=== PATIENT | female | born 1980 | race Two or more races ===

== ENCOUNTER 2016-09-16 03:19 | Emergency (ER) | payer BC ==
[~2016-09-16 03:19] MED LIST: ACET500CAP PO
[2016-09-16] MEDS ORDERED: NEUR300 PO (13:32)
[2016-09-16] MEDS ORDERED: MSCONT15 PO (13:34)
[2016-09-16] MEDS ORDERED: BACDS (13:34)
[2016-09-16] MEDS ORDERED: XELODA PO (13:35)
== END 2016-09-16 03:22 | disposition home or self-care (01) ==
LOC: ER 03:19
DX: G89.3 Neoplasm related pain (acute) (chronic) (principal); C50.912 Malignant neoplasm of unspecified site of left female breast; C79.51 Secondary malignant neoplasm of bone; M25.551 Pain in right hip; M54.5 Low back pain; K21.9 Gastro-esophageal reflux disease without esophagitis; Z85.3 Personal history of malignant neoplasm of breast; Z91.013 Allergy to seafood; Z79.899 Other long term (current) drug therapy
CPT/HCPCS: 96372; 99283; J1170; J2550

== ENCOUNTER 2016-09-16 10:42 | Inpatient (IN) | payer BC ==
--- NOTE | ~2016-09-16 | CONSULT ---
Radiation Oncology Consult [address] [address] NAME: GERARDO WERNER : 84 STATUS : ADM IN PAT#: [id number] AGE: 36 ADM/REG DATE : 09/16/16 MR#: [id number] REPORT SERV DATE: 09/19/16 DICTATED BY: GIAN TRINIDAD DATE: 09/19/16 REPORT STATUS : Draft TRANSCRIBED BY: MODL DATE: 09/19/16 RADIATION ONCOLOGY CONSULTATION CHIEF COMPLAINT: Lumbosacral metastasis. HISTORY OF PRESENT ILLNESS: Ms Werner is a pleasant 36-year-old female with metastatic triple negative breast cancer with recent evidence of progression of disease. She was originally diagnosed with metastatic disease in December of 2014, and has received carboplatin and Gemzar, and stereotactic radiosurgery to the brain followed by palliative radiation to the cervical spine. She has most recently developed severe pain in her lumbosacral region, and MRI confirms lesion in this region. She has been hospitalized for control of her pain, and had already been set up for CT treatment planning. I have been consulted to facilitate starting her treatment soon as possible. PAST MEDICAL HISTORY: Breast cancer and atrial fibrillation SOCIAL HISTORY: The patient is . Does not smoke or drink alcohol. FAMILY HISTORY: No family history of malignancy. ALLERGIES: SEAFOOD. MEDICATIONS: Medication list reviewed with the patient included in the patient's chart. REVIEW OF SYSTEMS: A comprehensive review of systems was discussed in detail with Ms Werner. Pertinent positives and negatives are included above in the history of present illness. PHYSICAL EXAMINATION: GENERAL: The patient is awake, alert and oriented, in no acute distress. Although, she appears to be in significant pain. VITAL SIGNS: Afebrile. Vital signs are stable. HEENT: Extraocular movements are intact. Sclerae anicteric. Oral cavity is benign without erythema. NECK: Supple. No thyromegaly. LYMPHATICS: No cervical, supraclavicular, or axillary lymphadenopathy palpated. LUNGS: Clear to auscultation bilaterally. Appropriate work of breathing. HEART: Regular rate. Normal sinus rhythm. No murmurs, rubs, or gallops. ABDOMEN: Soft, nontender, and nondistended. No hepatosplenomegaly. No apparent hernias. EXTREMITIES: No cyanosis, clubbing, or edema. SKIN: No rashes. No obvious jaundice. LABORATORY DATA: Labs and other data; imaging revealing a new site of metastasis at the lumbosacral junction causing severe pain. Radiation Oncology Consult [address] [place] [facility] [place] [address] NAME: GERARDO WERNER : 84 STATUS : ADM IN PAT#: [id number] AGE: 36 ADM/REG DATE : 09/16/16 MR#: [id number] REPORT SERV DATE: 09/19/16 DICTATED BY: GIAN TRINIDAD DATE: 09/19/16 REPORT STATUS : Draft TRANSCRIBED BY: SHILO DATE: 09/19/16 ASSESSMENT/PLAN: 36-year-old female with metastatic breast cancer and severe pain due to new metastatic disease. I will plan to treat this area with [address] simulation will be performed today, and I will give her first treatment on Monday. She should complete treatment by end of the next week. INFORMED CONSENT: The risks, benefits, and alternatives of this treatment have been discussed in detail with Ms Werner and she wishes to proceed. I appreciate the opportunity to be involved in her care. VICKEY/SHILO Gian Trinidad M.D. / [id number] CC: MD Iván Nelson MD Peter Boehm, M.D.
--- NOTE | ~2016-09-16 | DS ---
Discharge Summary [place] [id number] [facility] [place]. [address] NAME: GERARDO WERNER : 84 STATUS : DIS IN PAT#: [id number] AGE: 36 ADM/REG DATE : 09/16/16 MR#: [id number] REPORT SERV DATE: 09/19/16 DICTATED BY: HOMERO HERNANDEZ DATE: 09/19/16 REPORT STATUS : Draft TRANSCRIBED BY: MODL DATE: 09/19/16 ADMISSION DATE: 09/16/2016 DISCHARGE DATE: 09/19/2016 CHIEF COMPLAINT: Worsening back and lower extremity pain. DISCHARGING DIAGNOSES: 1. Metastatic triple-negative breast cancer with known metastases to brain, bone, and liver. 2. Worsening low back and right leg pain due to L5/S1 bony metastases. 3. Altwg-mt-grdcike pain. HISTORY OF PRESENT ILLNESS: Please see full H and P for details regarding initial presentation. HOSPITAL COURSE: 1. Worsening, uncontrolled low back and right leg pain due to bony metastases at L5-S1. The patient was admitted to the hospital, started on MONORAIL CHARGER OPERATOR pump. Flexeril was added by Oncology. Her basal MS Contin was increased. She was able to be weaned off the MONORAIL CHARGER OPERATOR and currently is controlled on her 30 mg p.o. b.i.d. of MS Contin in addition to her gabapentin, Flexeril with p.r.n. Percocet. Decadron was also restarted by Dr. Graff. She will follow up with Dr. Graff in one week and continue on these medications. The patient is to start radiation treatment as an outpatient today. 2. Metastatic triple-negative breast cancer. Follow up with Dr. Graff on 09/27/2016 as previously scheduled. 3. Pqqde-cr-ldihuph pain. See above. HOME MEDICATIONS AT DISCHARGE: 1. Xeloda 1000 mg p.o. b.i.d. 2. Flexeril 10 mg p.o. every eight hours. 3. Decadron 4 mg p.o. b.i.d. 4. Gabapentin 300 mg t.i.d. 5. MS Contin 30 mg p.o. b.i.d. 6. Percocet p.r.n. DISPOSITION: The patient will be discharged home today after she starts her radiation treatment. Time spent on this discharge is greater than 30 minutes. DNK/MODL Homero Hernandez MD Discharge Summary [place] [address] [place]. [address] NAME: GERARDO WERNER : 84 STATUS : DIS IN PAT#: [id number] AGE: 36 ADM/REG DATE : 09/16/16 MR#: [id number] REPORT SERV DATE: 09/19/16 DICTATED BY: HOMERO HERNANDEZ DATE: 09/19/16 REPORT STATUS : Draft TRANSCRIBED BY: SHILO DATE: 09/19/16 / [id number] CC: Homero Hernandez MD
--- NOTE | ~2016-09-16 | HP ---
History And Physical [place] [id number] [facility] [place]. [address] NAME: GERARDO WERNER : 84 STATUS : ADM IN PAT#: [id number] AGE: 36 ADM/REG DATE : 09/16/16 MR#: [id number] REPORT SERV DATE: 09/16/16 DICTATED BY: HOMERO HERNANDEZ DATE: 09/16/16 REPORT STATUS : Draft TRANSCRIBED BY: MODL DATE: 09/16/16 DATE OF ADMISSION: 09/16/2016 CHIEF COMPLAINT ON ADMISSION: Worsening back and lower extremity pain. HISTORY OF PRESENT ILLNESS: This is a 36-year-old female with history of metastatic stage IV breast cancer with history of brain metastases. She reports over the past month, she has been having worsening low back pain. She said that she initially started as feeling like a cramp in her right leg and has progressed to severe lower back pain that radiates largely down the right leg with some extremity numbness and severe pain. She states the pain is 10/10 and at this point, has over the past several days become constant. She has had initially some warm compresses and opioid pain medication her oncologist was prescribing and was keeping the pain controlled, but today, she presented to the oncology office and her pain was out of control, and Dr. Graff wanted her brought into the hospital for pain crisis. Dr. Trinidad was planning on starting simulation today for a new lumbar spine lesion. Likely, this is the source of her pain. Dr. Graff is planning on starting the Xeloda when she is better controlled to add to her additional regimen. Dr. Graff will follow along. REVIEW OF SYSTEMS: Full review of systems is obtained and is negative with the exception of above HPI. The patient does have occasional nausea when her pain gets severe, but denies chest pain, shortness of breath, dysuria, or incontinence of bowel or bladder. PAST MEDICAL HISTORY: Stage IV breast cancer. She has history of brain mets, status post resection. History of spinal mets with previous radiation. A new diagnosis of lumbar metastases. She does also have liver lesions and was treated previously with carboplatin and gemcitabine, 01/[address] Graff is her oncologist. FAMILY HISTORY: No history of malignancy. SOCIAL HISTORY: She is and does not smoke or drink. ALLERGIES: INCLUDE SEAFOOD. MEDICATIONS: List is pending at this time. PHYSICAL EXAMINATION: VITAL SIGNS: Temperature 97.6, blood pressure 118/67, pulse 95, respiratory rate 18, saturating 99% on room air. GENERAL: This is a pleasant female, who is in distress due to pain. No acute distress. HEENT: Extraocular muscles are intact. Sclerae anicteric. Mucous membranes are moist. LUNGS: Clear to auscultation bilaterally with normal respiratory effort and symmetric expansion. NECK: Supple. CARDIAC: Mildly tachycardic. No appreciable murmurs. History And Physical [address] [address] NAME: GERARDO WERNER : 84 STATUS : ADM IN PAT#: [id number] AGE: 36 ADM/REG DATE : 09/16/16 MR#: [id number] REPORT SERV DATE: 09/16/16 DICTATED BY: HOMERO HERNANDEZ DATE: 09/16/16 REPORT STATUS : Draft TRANSCRIBED BY: MODL DATE: 09/16/16 ABDOMEN: Soft, nontender, nondistended. EXTREMITIES: Lower extremities are warm and well perfused with no edema. NEUROLOGIC: Cranial nerves 2 through 12 are grossly intact. Face is symmetric. Tongue is midline. PSYCHIATRIC: The patient is cooperative and appropriate. SKIN: Warm, dry, and intact with no rash. LABORATORY DATA: Pending at this time. ASSESSMENT AND PLAN: 1. Metastatic breast cancer with pain crisis due to bony lesions to lumbar spine. The patient did have an MRI earlier about four days ago. This has been reviewed. She did not have any spinal cord compression at that time. She has not developed any symptoms of cord compression at this point either. At this point, we will admit her to the hospital for pain control with Dilaudid AIR DEFENSE CONTROL OFFICER. We will consult Dr. Graff and Dr. Trinidad to follow along with us. The patient will hopefully start radiation treatments that she was planned to do later today. We will access her port per protocol. 2. Triple-negative breast cancer. Dr. Graff will follow along with us and decide when to start Xeloda per his discretion and further plans for treatment. 3. Deep vein thrombosis prophylaxis will be with enoxaparin. 4. Code status is full. DNK/MODL Homero Hernandez MD / [id number]
[2016-09-16 12:25] LABS: BASOPHILS 0.2 %; BASOPHILS ABSOLUTE 0.01 10/3/uL (0.0-0.16); EOSINOPHILS 1.6 %; EOSINOPHILS ABSOLUTE 0.08 10/3/uL (0.0-0.53); HEMOGLOBIN 11.9 g/dL (12.0-16.0); LYMPHOCYTES 20.6 %; LYMPHOCYTES ABSOLUTE 1.04 10/3/uL (0.67-4.30); MEAN CORPUSCULAR HEMOGLOB 32.4 pg (26.0-34.0); MEAN CORPUSCULAR VOLUME 95.4 fL (80-100); MEAN PLATELET VOLUME 9.8 fL (9.2-13.0); MONOCYTES 7.1 %; MONOCYTES ABSOLUTE 0.36 10/3/uL (0.21-1.20); NEUTROPHILS 70.5 %; NEUTROPHILS ABSOLUTE 3.56 10/3/uL (2.02-8.40); PLATELET COUNT 242 10/3/uL (150-400); RBC DISTRIBUTION WIDTH 12.7 % (12.0-16.0); RED CELL COUNT 3.67 10/6/uL (4.0-5.6); WHITE BLOOD CELLS 5.1 10/3/uL (4.5-10.5)
[2016-09-16 12:26] LABS: MANUAL DIFF NO %
[2016-09-16 12:42] LABS: A/G RATIO 0.9 (0.7-1.9); ALBUMIN 3.6 G/DL (3.5-5.0); ALKALINE PHOSPHATASE 60 U/L (45-117); BUN (BLOOD UREA NITROGEN) 6 MG/DL (6-23); CALCIUM, SERUM 8.9 MG/DL (8.5-10.4); CHLORIDE, SERUM 108 MMOL/L (96-112); CO2 (CARBON DIOXIDE) 25 MMOL/L (24-34); CREATININE 0.57 MG/DL (0.55-1.02); GFR AFRICAN AMERICAN 140 ML/MIN (>=60); GFR NON AFRICAN AMERICAN 121 ML/MIN (>=60); GLOBULIN 3.9 G/DL (2.5-4.1); GLUCOSE, SERUM 95 MG/DL (60-99); POTASSIUM, SERUM 3.5 MMOL/L (3.5-5.3); SGOT(AST) 17 U/L (5-40); SGPT(ALT) 15 U/L (5-65); SODIUM, SERUM 142 MMOL/L (135-148); TOTAL BILIRUBIN 0.4 MG/DL (0-1.2); TOTAL PROTEIN 7.5 G/DL (6.0-8.5)
[2016-09-16] MEDS ORDERED: NEUR300 PO (13:32)
[2016-09-16] MEDS ORDERED: BACDS (13:34)
[2016-09-16] MEDS ORDERED: MSCONT15 PO (13:34)
[2016-09-16] MEDS ORDERED: XELODA PO (13:35)
[2016-09-19 04:02] LABS: BASOPHILS 0 %; EOSINOPHILS 0 %; HEMATOCRIT 33.9 % (36.0-48.0); HEMOGLOBIN 11.5 g/dL (12.0-16.0); IMMATURE GRANULOCYTES 0.1 %; IMMATURE GRANULOCYTES ABSOLUTE 0.01 10/3/uL (0.0-0.11); LYMPHOCYTES 9.7 %; LYMPHOCYTES ABSOLUTE 0.68 10/3/uL (0.67-4.30); MANUAL DIFF NO %; MEAN CORPUS HGB CONC 33.9 g/dL (32.0-36.0); MEAN CORPUSCULAR HEMOGLOB 32.3 pg (26.0-34.0); MEAN CORPUSCULAR VOLUME 95.2 fL (80-100); MEAN PLATELET VOLUME 8.6 fL (9.2-13.0); MONOCYTES 4.4 %; MONOCYTES ABSOLUTE 0.31 10/3/uL (0.21-1.20); NEUTROPHILS 85.8 %; NEUTROPHILS ABSOLUTE 6.01 10/3/uL (2.02-8.40); PLATELET COUNT 293 10/3/uL (150-400); RBC DISTRIBUTION WIDTH 12.8 % (12.0-16.0); RED CELL COUNT 3.56 10/6/uL (4.0-5.6)
[2016-09-19 04:07] LABS: BUN (BLOOD UREA NITROGEN) 5 MG/DL (6-23); CALCIUM, SERUM 8.8 MG/DL (8.5-10.4); CHLORIDE, SERUM 108 MMOL/L (96-112); CO2 (CARBON DIOXIDE) 26 MMOL/L (24-34); CREATININE 0.71 MG/DL (0.55-1.02); GFR AFRICAN AMERICAN 129 ML/MIN (>=60); GFR NON AFRICAN AMERICAN 111 ML/MIN (>=60); POTASSIUM, SERUM 3.9 MMOL/L (3.5-5.3); SODIUM, SERUM 140 MMOL/L (135-148)
[2016-09-19 04:08] LABS: GLUCOSE, SERUM 143 MG/DL (60-99)
[2016-09-19] MEDS ORDERED: MSCONTIN PO (11:17)
[2016-09-19] MEDS ORDERED: FLEX PO (11:18)
[2016-09-19] MEDS ORDERED: PERCOCET 10/3251 TAB PO (11:18)
[2016-09-19] MEDS ORDERED: DEX4 PO (11:19)
== END 2016-09-19 14:26 | disposition home or self-care (01) | DRG 543 ==
LOC: CDU2 10:42 → 4EA 17:41
PROVIDERS: Internal Medicine
DX: C79.51 Secondary malignant neoplasm of bone (principal); C79.31 Secondary malignant neoplasm of brain; C78.7 Secondary malignant neoplasm of liver and intrahepatic bile duct; C50.912 Malignant neoplasm of unspecified site of left female breast; K21.9 Gastro-esophageal reflux disease without esophagitis; Z85.3 Personal history of malignant neoplasm of breast; Z91.013 Allergy to seafood; Z79.899 Other long term (current) drug therapy
CPT/HCPCS: 71260; 74177; 77280; 77290; 77307; 77334; 77412; 80048; 80053; 85025; 96372; 99283; A9270-GY; J1170; J1200; J2550